=== PATIENT | male | born 1980 | race Caucasian/White ===

== ENCOUNTER 2025-01-17 02:10 | Emergency (ER) | payer OTHER ==
[~2025-01-17] VITALS: Ht 180.3 cm; Wt 81.7 kg
[2025-01-17] MEDS ORDERED: FentaNYL Citrate 50 MCG/ML 2 ML Injection IV PRN (04:25)
[2025-01-17] MEDS ORDERED: RX Prepack 6 Tabs Oxycodone 5mg UD ONE (04:35)
[2025-01-17] MEDS ORDERED: HYDR1TAB94 PO (04:38)
[2025-01-17] MEDS ORDERED: LIDO700A20 TOP (04:38)
[2025-01-17] MEDS ORDERED: Ibuprofen600 MG PO (04:38)
== END 2025-01-17 04:53 | disposition home or self-care (01) ==
LOC: ER 02:10
DX: S42.022A Displaced fracture of shaft of left clavicle, initial encounter for closed fracture (principal); S50.812A Abrasion of left forearm, initial encounter; V19.9XXA Pedal cyclist (driver) (passenger) injured in unspecified traffic accident, initial encounter; Y93.55 Activity, bike riding; Z59.89 Other problems related to housing and economic circumstances
CPT/HCPCS: 70450; 72125; 73030; 93005; 93010; 96374; 99284-25; A9270; J3010